=== PATIENT | female | born 1950 | race Caucasian/White ===

== ENCOUNTER 2017-04-10 13:56 | Emergency (ER) | payer OTHER ==
[~2017-04-10] VITALS: Ht 167.6 cm; Wt 81.6 kg
[~2017-04-10 13:56] MED LIST: FURO-149 PO; RISP0.5T20 PO; VALS320T10 PO
[2017-04-10 15:05] VITALS: BP_SYST 149
--- NOTE | 2017-04-10 15:05 | NUR ---
Patient triaged and placed in waiting room. VSS and patient appears in no acute distress at this time. Accompanied by family, awaiting available bed, and MD notified of need for MSE.
--- NOTE | 2017-04-10 16:30 | NUR ---
CHARLIE EXPRESSING CONCERN OVER WAIT TIMES STATING THEY WANT TO LEAVE. APOLOGIZED FOR WAIT TIME ENCOURAGED PATIENT TO STAY, PATIENT CONTINUED TO REQUEST TO LEAVE. INFORMED TO PLEASE RETURN ALCIDES AND THAT COPIES OF XRAYS WOULD BE AVAILABLE THROUGH [facility] WEDNESDAY AND TO F/U WITH PMD. PT AMBULATED WITH STEADY UNASSISTED GAIT OUTSIDE WITH FAMILY. DR. ALEJANDRA MADE AWARE
--- NOTE | 2017-04-10 17:00 | NUR ---
Atttempted to place patient in Room 8 unable to locate patient in [facility] or outside
--- NOTE | 2017-04-10 17:10 | NUR ---
Attempted to place patient in room unable to locate patient in wr or outside
--- NOTE | 2017-04-10 17:34 | NUR ---
Unable to locate pt in wr or outside
== END 2017-04-10 16:30 | disposition left against medical advice (07) ==
LOC: SED 13:56
DX: M79.672 Pain in left foot (principal); Z53.21 Procedure and treatment not carried out due to patient leaving prior to being seen by health care provider; W19.XXXA Unspecified fall, initial encounter; Y93.89 Activity, other specified; Y92.481 Parking lot as the place of occurrence of the external cause; Y99.8 Other external cause status
CPT/HCPCS: 99281